=== PATIENT | female | born 1985 | race Caucasian/White ===

== ENCOUNTER 2022-07-12 22:19 | Emergency (ER) | payer OTHER ==
[~2022-07-12] VITALS: Ht 162.6 cm; Wt 88.0 kg
[2022-07-12 22:29] VITALS: BP 147/92
[2022-07-12 23:15] VITALS: BP 158/91
[2022-07-13] VITALS (10 sets, daily range): BP systolic 110–174; BP diastolic 68–98
[2022-07-13] MEDS ORDERED: VOLTAREN - GENE75 MG PO (00:36)
[2022-07-13] MEDS ORDERED: LORTAB 5/3255 MG PO (00:36)
== END 2022-07-13 02:30 | disposition home or self-care (01) | DRG 563 ==
LOC: ED 22:19
PROC: 0SSFXZZ Reposition Right Ankle Joint, External Approach (ICD-10-PCS; principal; 2022-07-12)
DX: S82.891A Other fracture of right lower leg, initial encounter for closed fracture (principal); S82.391A Other fracture of lower end of right tibia, initial encounter for closed fracture; S92.202A Fracture of unspecified tarsal bone(s) of left foot, initial encounter for closed fracture; W10.8XXA Fall (on) (from) other stairs and steps, initial encounter; Y92.028 Other place in mobile home as the place of occurrence of the external cause